=== PATIENT | female | born 1965 | race Caucasian/White ===

== ENCOUNTER 2022-12-27 12:16 | Emergency (ER) | payer BC ==
[~2022-12-27] VITALS: Ht 170.2 cm; Wt 55.9 kg
[2022-12-27 12:24] VITALS: TEMP 97.5
[2022-12-27 13:37] VITALS: BP 94/60; PULSE 67
== END 2022-12-27 13:37 | disposition home or self-care (01) ==
LOC: COL.ER 12:16
DX: S99.922A Unspecified injury of left foot, initial encounter (principal); Z87.81 Personal history of (healed) traumatic fracture; X50.1XXA Overexertion from prolonged static or awkward postures, initial encounter; W18.40XA Slipping, tripping and stumbling without falling, unspecified, initial encounter